=== PATIENT | male | born 1960 | race Caucasian/White ===

== ENCOUNTER 2019-11-27 02:56 | Outpatient (CLI) | payer BC, SELFPAY ==
[2019-11-27 18:16] LABS: SARS-CoV-2 RNA PCR Negative
== END 2019-11-27 02:57 | disposition home or self-care (01) ==
PROVIDERS: PCP Internal Medicine; Visit Provider Urology
DX: Z01.812 Encounter for preprocedural laboratory examination (principal); Z20.828 Contact with and (suspected) exposure to other viral communicable diseases
CPT/HCPCS: 87635; C9803; U0003

== ENCOUNTER 2019-11-29 03:49 | Day surgery (SDC) | payer BC, SELFPAY ==
[2019-11-14 12:47] VITALS: BMI 32.5
--- NOTE | 2019-11-29 06:48 | WPDHPUPDATE1 ---
History and Physical Update Update Date/Time: 11/29/19 06:48 History and Physical has been reviewed, including an updated exam of the patient. There are NO changes in the patient's condition. Risks, benefits, and alternatives have been discussed and questions answered. Patient agrees to proceed with procedure.
--- NOTE | 2019-11-29 08:39 | ECG_ITS ---
Measurements Intervals [place] Rate: 82 P: 51 IN: 157 QRS: -40 QRSD: 125 T: 38 QT: 376 QTc: 440 Interpretive Statements SINUS RHYTHM LEFT AXIS DEVIATION INTRAVENTRICULAR CONDUCTION DELAY VOLTAGE CRITERIA FOR LVH BORDERLINE ECG Electronically Signed On 11-29-2019 9:11:44 CDT by Phoenix Trimble D.O.
[2019-11-29 08:41] VITALS: BP 114/76; PULSE 86; RESP 20; TEMP 36.6; O2SAT 98
[2019-11-29] MEDS: LACTATED RINGERS 1,000 ML 30 ML IV CONT (09:10)
--- NOTE | 2019-11-29 09:16 | P.PNAN_ITS ---
Anes - Initial Pre Proc Eval Procedure: Operation Date: 11/29/19 10:30 Proposed Procedures p Cystoscopy, Urethral Dilatation - Tank Fuentes MD Date/Time: 11/29/19 09:16 Surgeon: Tank Fuentes MD Pre Op Diagnosis: incomplete emptying, urethral stricture Patient Data Age: 59 Gender: M Height: 5 ft 9 in Weight: 99.79 kg Allergies Allergy/AdvReac Type Severity Reaction Status Date / Time Iodinated Contrast Media Allergy ITCHING/SWE Verified 11/14/19 13:09 LLING/RASH iohexol Allergy ITCHING/SWE Verified 11/14/19 12:50 [From contrast - CT, X-RAY] LLING/REDNE SS lisinopril Allergy LIP Verified 11/14/19 12:50 SWELLING Home Medications Medication Instructions Recorded Confirmed Type zispeuedm-kutawiow-mzp-hyalur 1 tablet PO DAILY 11/14/19 11/14/19 History [Joint Health] cyanocobalamin (vitamin B-12) 1 ml PO DAILY 11/14/19 11/14/19 History [Vitamin B-12] losartan 100 mg PO QPM 11/14/19 11/14/19 History naproxen 500 mg PO BID 11/14/19 11/14/19 History omeprazole 40 mg PO QPM 11/14/19 11/14/19 History tadalafil 20 mg PO DIRECTED PRN 11/14/19 11/14/19 History tamsulosin 0.4 mg PO QPM 11/14/19 11/14/19 History Patient hx anesthesia problems: none Family hx anesthesia problems: none [facility] Past Medical History Medical History (Updated 11/29/19 @ 09:17 by Vishal Mccoy MD) HTN (hypertension) Obesity MANAV (obstructive sleep apnea) Social History Social History Smoking status: Never smoker Spiritual care concerns: No Anes - Eval Final PreProcedure Day of Procedure 11/29/19 09:16 Patient weight: obese Heart: regular rate and rhythm Lungs: clear to auscultation Airway: Mallampati scale class II Neurological: alert and oriented Last oral intake: >/= 8 hours ASA classification: III Emergent: no Anesthetic plan: proceed Anesthesia type and monitoring: general LMA and standard monitoring Informed Consent: The patient's anesthetic plan and its attendant risks and benefits were discussed with the patient/family/POA. Questions were solicited and answers provided to the satisfaction of the patient/family/POA.
[2019-11-29] MEDS: ceFAZolin 2 GM/D5W 50 ML 2 GM/50 ML BAG IVPB (10:10)
[2019-11-29] MEDS: LIDOCAINE HCL 2% GEL UROJET 10 ML PKG MUCOUS MEM (10:14)
--- NOTE | 2019-11-29 10:34 | PM.PROC ---
Procedure Note - Detailed Date of procedure: 11/29/19 Pre-op diagnosis: incomplete emptying, urethral stricture Post-op diagnosis: same Procedure performed: Cystoscopy with urethral dilatation Description of procedure: The patient was brought to the operative suite where he was prepped and draped in a routine sterile fashion while in a dorsal lithotomy position after the uneventful induction of a general LMA anesthetic. Cystoscopy was undertaken with a 16F flexiblecystoscope. There was a notably constricting bulbous urethral stricture. The prostatic urethral estimated length was 2.0cm. There was mild obstruction of the prostatic urethra with no median lobe enlargement. The bladder itself was endoscopically normal without foreign body or neoplasm. The bladder mucosa was without hyperemia. There was a single orthotopic ureteral orifice bilaterally with clear efflux of urine. Using the Amplatz dilators over a 0.035 glidewire I dilated the urethra and bladder neck from 8F -> 24 F. The bladder was emptied and the patient was taken to the recovery room in good condition Anesthesia: MAC Surgeon: Tank Fuentes MD Estimated blood loss (mL): 0 Drains: No Packing: No Pathology: none sent Complications: No immediate complications Condition: stable Disposition: PACU
[2019-11-29 10:38] VITALS: BP 139/94; PULSE 88; RESP 14; O2SAT 98
[2019-11-29 11:06] VITALS: BP 130/78; PULSE 83; RESP 18
--- NOTE | 2019-11-29 11:12 | SUR.PHASEII ---
REPORT GIVEN TO ANTONIO LUNA
[2019-11-29 11:30] VITALS: BP 140/82; PULSE 80; RESP 20
== END 2019-11-29 12:30 | disposition home or self-care (01) ==
PROVIDERS: PCP Internal Medicine; Visit Provider Urology
PROC: 0T7D8ZZ Dilation of Urethra, Via Natural or Artificial Opening Endoscopic (ICD-10-PCS; CPT 52281; principal; 2019-11-29 10:30)
DX: N35.912 Unspecified bulbous urethral stricture, male (principal); I10 Essential (primary) hypertension; G47.33 Obstructive sleep apnea (adult) (pediatric); E66.9 Obesity, unspecified; Z68.32 Body mass index [BMI] 32.0-32.9, adult
CPT/HCPCS: 52281; 93005; A9270; C1726; C1769; J0690; J1100; J2250; J2405; J2704; J3010; J7120

== ENCOUNTER 2020-03-07 14:40 | Outpatient (CLI) | payer BC, SELFPAY ==
--- NOTE | 2020-03-07 | ECHO_ITS ---
Patient Info Name: Mervin Quick Age: 59 years : 1960 Gender: Male Ht: 69 in Wt: 221 lbs BSA: 2.24 m2 HR: 65 bpm BP: 147 / 87 mmHg Technical Quality: Fair Exam Date: 03/07/2020 3:18 PM Exam Location: [facility] Patient Status: Outpatient Admit Date: 03/07/2020 Staff Ordering Physician: Pete, Boogie Rees MD Lead Software Qa Engineer: Lauren Padilla RDCS Attending Provider: Zoltan, Boogie Rees MD Referring Physician: Pete MORTON; Exam Type: CA echo doppler color flow Study Info Indications - cardiomegaly Complete two-dimensional, color flow and Doppler transthoracic echocardiogram is performed. Summary 1. Complete two-dimensional, color flow and Doppler transthoracic echocardiogram is performed. 2. Left ventricular chamber dimension is normal. 3. Ventricular septum is sigmoid shaped. No LVOT obstruction. 4. Left ventricular systolic function is normal, estimated at 65-70%. 5. There is mildly increased left ventricular wall thickness. 6. The left ventricular diastolic function is grade I diastolic dysfunction. 7. E/e' 11 is mildly elevated. 8. There is trace mitral valve regurgitation. 9. There is trace tricuspid valve regurgitation. 10. No pulmonary hypertension, estimated pulmonary arterial systolic pressure is 32 mmHg. Left Ventricle E/e' 11 is mildly elevated. Ventricular septum is sigmoid shaped. No LVOT obstruction. Left ventricular chamber dimension is normal. Left ventricular systolic function is normal, estimated at 65-70%. There is mildly increased left ventricular wall thickness. The left ventricular diastolic function is grade I diastolic dysfunction. Right Ventricle Right ventricular chamber dimension is normal. Right ventricular systolic function is normal. Left Atria Left atrial chamber dimension is normal. Right Atria Right atrial chamber dimension is normal. Aortic Valve The aortic valve is trileaflet. There is no aortic valve stenosis. There is no aortic valve regurgitation. Pulmonic Valve There is no pulmonic regurgitation. Mitral Valve There is no mitral valve stenosis. There is trace mitral valve regurgitation. Tricuspid Valve There is trace tricuspid valve regurgitation. No pulmonary hypertension, estimated pulmonary arterial systolic pressure is 32 mmHg. Pericardium/Pleural There is no pericardial effusion. Inferior Vena Cava Normal inferior vena cava with >50% collapse upon inspiration consistent with normal right atrial pressure, 5 mmHg. Aorta The aortic root size at the sinus of Valsalva is normal. Left Ventricular Outflow Tract Name Value Normal LVOT 2D LVOT Diameter 2.1 cm LVOT Doppler LVOT Peak Gradient 5 mmHg LVOT Mean Gradient 3 mmHg LVOT VTI 21 cm LVOT VTI/AV VTI Ratio 0.9 LVOT Stroke Volume 72 ml LVOT CO 15.3 l/min LVOT CI 6.8 l/min/m2 Pulmonic Valve
== END 2020-03-07 14:41 | disposition home or self-care (01) ==
LOC: ANHCARD 14:41
PROVIDERS: PCP Internal Medicine; Visit Provider Internal Medicine
DX: I51.7 Cardiomegaly (principal)
CPT/HCPCS: 93306